=== PATIENT | male | born 1945 | race Caucasian/White ===

== ENCOUNTER → 2025-02-24 | Outpatient (CLI) | payer OTHER ==
--- NOTE | 2025-02-24 16:46 | MR ---
INDICATION: Patient age:Male; 79 years old; Reason for study: R94.02 ABNORMAL BRAIN SCAN; [facility]. COMPARISON: CT brain 01/28/2025. TECHNIQUE: Multi planar, multi sequence imaging was performed through the brain without administratio n intravenous contrast. FINDINGS: The resendiz-white junctions, ventricular system, basal cisterns appear unremarkable. Age-appropriate dif fuse cerebral volume loss. Diffusion-weighted imaging shows no evidence of restricted diffusion to lott ggest acute/subacute infarct. Intracranial arterial flow voids are maintained. Midline structures lacy w no abnormality. Patchy and confluent areas of high T2/FLAIR signal intensity are seen within the pe riventricular and subcortical white matter. The susceptibility weighted images demonstrate approximat suman 10-15 scattered foci of blooming artifact consistent with prior microhemorrhage. Majority are wanda ntified within the left parietal lobe. Focal hyperdense region on CT within the right centrum semiova le demonstrate some blooming artifact on susceptibility weighted imaging. No associated T1 hyperinten sity. Findings are most consistent with calcification/prior microhemorrhage. There is associated T2 s doug through on diffusion weighted imaging. Anterior falx calcification is identified. Left frontal calvarial 2.6 x 0.9 cm T1/T2 hypointense lesion (series 201, image 12). This corresponds to a sclerotic lesion on recent CT. No extension through the inner and outer tables. The globes are unremarkable. Mild mucosal thickening/mucous retention cyst within the inferior left maxillary sinus. IMPRESSION: 1. No evidence of intracranial mass or acute/subacute infarct. 2. Nonspecific moderate white matter changes, likely related to small vessel ischemic disease. 3. Several scattered foci of prior microhemorrhage. Right centrum semiovale hyperdensity on CT corres ponds to small focus of calcification and/or prior microhemorrhage. 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 4. Left frontal bone lesion with benign characteristics. 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 [facility], , 02/24/2025 4:44 PM
== END | disposition home or self-care (01) ==
LOC: RADMRIMAIN 15:48
PROVIDERS: ATTEND Family Medicine
DX: R90.82 White matter disease, unspecified (principal); R94.02 Abnormal brain scan
CPT/HCPCS: 70551